=== PATIENT | male | born 1980 | race Caucasian/White ===

== ENCOUNTER 2021-01-18 20:59 | Emergency (ER) | payer MEDICARE, OTHER | END 2021-01-18 23:08 | disposition home or self-care (01) | LOC: FER 20:59 | DX: T18.128A Food in esophagus causing other injury, initial encounter (principal); F17.210 Nicotine dependence, cigarettes, uncomplicated; Z88.6 Allergy status to analgesic agent | CPT/HCPCS: J1610; J2405; J7040 ==

== ENCOUNTER 2021-04-23 15:21 | Emergency (ER) | payer OTHER ==
[2021-04-23 17:57] LABS: BASOPHIL 0.3 % (0-2); EOSINOPHIL 2.3 % (0-5); HGB 16.8 g/dl (13.2-18.0); LYMPHOCYTE 16.3 % (15-48); MCH 31.9 pg (25.0-31.0); MCHC 35.7 g/dL (32.0-36.0); MCV 89.4 fL (78.0-100.0); MONOCYTE 5.8 % (0-12); MPV 10.2 fL (6.0-9.5); NEUTROPHIL 74.8 % (41-80); NRBC 0; PLT 378 K/uL (150-400); RBC 5.26 M/uL (4.70-6.00); WBC 8.8 K/uL (4.0-10.5)
[2021-04-23 18:12] LABS: ALBUMIN 4.3 g/dL (3.4-5.0); BILIRUBIN - TOTAL 0.4 mg/dL (0.2-1.0); BUN/CREAT RATIO (CALC) 10.4 RATIO; CREATININE 0.77 mg/dL (0.67-1.17); GLOBULIN (CALCULATION) 3.3 g/dL; POTASSIUM 3.3 mmol/L (3.5-5.1); TOTAL PROTEIN 7.6 g/dL (6.4-8.2)
[2021-04-23 18:16] LABS: LACTIC ACID 1.3 mmol/L (0.4-1.9)
[2021-04-23] MEDS ORDERED: PRILOSEC20 MG PO (19:02)
[2021-04-23] MEDS ORDERED: ZOFRAN4 M1 PO (19:02)
== END 2021-04-23 19:29 | disposition home or self-care (01) ==
LOC: FER 15:21
PROVIDERS: Internal Medicine
DX: R10.9 Unspecified abdominal pain (principal); F17.200 Nicotine dependence, unspecified, uncomplicated; Z20.822 Contact with and (suspected) exposure to COVID-19
CPT/HCPCS: 36415; 80053; 83605; 83690; 83735; 85025; J1610; J2405; J7030; U0002

== ENCOUNTER 2022-07-25 13:56 | Emergency (ER) | payer OTHER ==
[~2022-07-25 13:56] MED LIST: PRILOSEC20 MG PO; ZOFRAN4 M1 PO
[2022-07-25] MEDS ORDERED: CEPHALEXIN500 MG PO (15:28)
[2022-07-25] MEDS ORDERED: BACTRIM DS TAB1 EACH PO (15:28)
== END 2022-07-25 16:18 | disposition home or self-care (01) ==
LOC: FER 13:56
DX: S91.312A Laceration without foreign body, left foot, initial encounter (principal); Z88.6 Allergy status to analgesic agent; Z28.310 Unvaccinated for COVID-19
CPT/HCPCS: 99283